=== PATIENT | female | born 1940 | race Caucasian/White ===

== ENCOUNTER 2017-09-06 06:26 | Day surgery (SDC) | payer MEDICARE ==
[~2017-09-06] VITALS: Ht 152.4 cm; Wt 61.6 kg
[~2017-09-06 06:26] MED LIST: LOVA1TAB47 PO; ONDA1TAB16 PO
[2017-09-06] MEDS ORDERED: IOHEXOL 350 MG/ML 50 ML BTL (for Cath Lab) OTHER ONE (06:27)
[2017-09-06] MEDS ORDERED: IOHEXOL 350 MG/ML 100 ML BTL (for Cath Lab) OTHER ONE (06:27)
[2017-09-06] MEDS ORDERED: SODIUM CHLOR 0.9% 1000 ML INJ 1,000 ML IV SCH (07:15)
[2017-09-06 07:43] VITALS: BP 149/63; PULSE 84; RESP 18; O2SAT 100
[2017-09-06] MEDS ORDERED: LEXA5TAB PO (07:51)
[2017-09-06] MEDS ORDERED: MULTTAB67 PO (07:51)
[2017-09-06] MEDS ORDERED: CLAR10CA3 PO (07:51)
[2017-09-06] MEDS ORDERED: ECASA81 PO (07:51)
[2017-09-06] MEDS ORDERED: BIOTCAP PO (07:51)
[2017-09-06] MEDS ORDERED: LOVA20TA PO (07:51)
[2017-09-06] MEDS ORDERED: ZOSTINJ SQ (07:51)
[2017-09-06] MEDS ORDERED: benadryl PO (07:51)
[2017-09-06] MEDS ORDERED: CALC600T10 PO (07:51)
[2017-09-06] MEDS ORDERED: HEPARIN-NS/PF INJ 1,000 ML ONE (09:01)
[2017-09-06] MEDS ORDERED: MIDAZOLAM HCL 2 MG/2 ML VIAL ONE (09:20)
[2017-09-06] MEDS ORDERED: HEPARIN SODIUM - IV 10,000 UNITS/10 ML VIAL ONE (09:26)
[2017-09-06] MEDS ORDERED: NITROGLYCERIN INJ 5 ML ONE (09:42)
[2017-09-06] MEDS ORDERED: ADENOSINE IV SOLN 3 MG/ML 2 ML VIAL ONE (09:42)
[2017-09-06] MEDS ORDERED: CLOPIDOGREL 300 MG TAB ONE (10:14)
--- NOTE | 2017-09-06 10:25 | CATHPROC ---
[employer] HIS Report Study Information Study Number Admission Scheduled Start Study Start [id number] Sep 06 2017 6:26AM 09/06/2017 Sep 06 2017 8:59AM [facility] Service Cath Endovascular Study Admit Source Facility Department [facility] - Fuel Conversion Technician Physician and Clinical Staff Initial Ilir Amezquita Mechanical Tech Elizabeth Alvarado BSN Recorder Bradly Rosado,RT(R) Scrub Yariel Biggs,RT(R) Procedures Performed Procedure Location (Site) Vessel Name Abdominal Angiogram Abd Aorta (A3) Aorta Angiogram (manual) Fem R. Com (R7) Femoral Art Angiogram (manual) Iliac L. Com. (L4) Illiac Art. Angiogram (manual) Popliteal L (L10) Popliteal Angiogram (manual) Popliteal R (R10) Popliteal Angiogram (manual) SFA (left) Femoral Art Angiogram (manual) SFA (right) Femoral Art Angiogram (manual) Tib, Ant. (left) Popliteal Angiogram (manual) Tib, Ant. (right) Popliteal Angiogram (manual) Tib, Post (right) Popliteal SPECIAL ORDER JEWELER Peroneal (left) Popliteal SPECIAL ORDER JEWELER SFA (left) Femoral Art Equipment Time Wastewater Supervisor Description Size Mfg Part Number Used/Scraped DBP- CARDIOVASCULAR CATHETER, STEALTH SOLID 09:47 [id number] Used SYSTEMS INC. 1.5MM 30 GRIT *[id number] CARDIOVASCULAR [id number] 09:39 WIRE, FIRM (VIPER) 335 Used SYSTEMS INC. *[id number] WIRE, GUIDE APPROACH HYDRO [id number] 09:40 COOK/NORA 300CM Used ST *[id number] 532-523 09:26 CORDIS/ NORA RIM SUPER TORQUE CATHETER FR 5 Used *[id number] BALLOON, ADMIRAL IN.PACT 5 X [id number] 10:03 [employer] 130CM Used 120 130CM *[id number] BALLOON, AMPHIRION DEEP 3 X [id number] 09:45 [employer] 152CM Used 40 152CM *[id number] BALLOON, PACIFIC PLUS 5 X 120 [id number] 09:57 [employer] 130CM Used 130CM *[id number] CATHETER, FR5 TRAILBLAZER [id number] 09:39 [employer] 135CM Used .035 *[id number] 09:05 MALLINCKRODT SYRINGE, ANGIOMAT 150ML 150ML [id number] Used [id number] 09:05 [employer] PACK, CCL CUSTOM * Used *[id number] 09:05 [employer] PACER PEN, SKIN DUAL W/ RULER * Used *[id number] 6865-23 09:26 [employer] PIGTAIL ANG. CATHETER FR 5 Used *[id number] 10:04 [employer] SHEATH, FR6.5 PRELUDE 11CM FR 6.5 038ACT Used *[id number] 09:05 [employer] WIRE, EXCHANGE 260CM 3MMJ 260CM Used *[id number] 09:05 NAMIC MANIFOLD, 4 PORT * Used *[id number] [id number] 09:05 NAMIC TUBING, HIGH PRESSURE 48" 48" Used *[id number] [id number] 09:26 NAMIC TUBING, HIGH PRESSURE 48" 48" Used *[id number] 09:05 [employer]COMED OMNIPAQUE, 300 MG, 150ML 150ML [id number] Used 09:28 [employer]COMED OMNIPAQUE, 300 MG, 50ML 50ML [id number] Used [id number] 09:05 [facility] BLANKET,WARM AIR CCL * Used *[id number] CAL196 09:05 TERUMO MEDICAL SHEATH, FR5 TERUMO (10CM) FR 5 Used *[id number] SHEATH, FR6 PINNACLE [id number] 09:35 TERUMO MEDICAL/NORA FR 6 Used DESTINATION 45CM *[id number] WIRE, ANGLE GLIDE STIFF .035 [id number] 09:05 TERUMO MEDICAL/NORA 260CM Used 260CM *[id number] Equipment Model, Serial, Lot Number and Expiration Data Description Model Number Serial Number Lot Number Expiration Jason e BALLOON, AMPHIRION DEEP 3 X 40 [id number] 11-30-2018 152CM CATHETER, FR5 TRAILBLAZER .035 [id number] 10-12-2019 CATHETER, STEALTH SOLID 1.5MM [id number] 04-01-2019 30 GRIT WIRE, FIRM (VIPER) 335 [id number] 04-01-2019 WIRE, GUIDE APPROACH HYDRO [id number] 06-11-2019 ST History: Current Medications Medication Dosage/Unit Route Frequency Last Date/Time Taken ASA Statins (any) History: Allergies Allergy Reaction Sulfa (Sulfonamide Antibiotics) Rash ciprofloxacin PT DOES NOT REMEMBER History: Risk Factors Family History of Hypertension Dyslipidemia Previous CA Previous Heart Failure Premature CAD No Yes Yes No No Prior Valve Prior PCI Prior CABG Surgery No No No Cerebrovascular Peripheral Artery Chronic Lung On Dialysis Diabetes Disease Disease Disease No No Yes No No History: Stress Tests Stress or Imaging Studies Performed No History: Other Current Smoker No Labs Hgb (g/dl) Hct (%) RBC (MIL/MM3) WBC (l/cumm) Platelets (thousands) 11.60-17.00 35.00-51.00 4.00-5.90 4.00-11.00 150.00-450.00 11.4 35.3 4.1 7.9 353 Glucose (mg/dl) BUN (mg/dl) Creatinine (mg/dl) BUN:Creatinine (1:x) 74.00-106.00 7.00-18.00 0.50-1.30 10.00-20.00 74 26 0.7 37.1 Na (meq/l) K (meq/l) Cl (meq/l) CO2 (mmol/L) Ca (mg/dl) 136.00-145.00 3.50-5.10 98.00-107.00 21.00-32.00 8.50-10.10 139 5 99 24 9.2 PT (sec) INR (PTT:PT) 9.80-11.60 0.90-1.10 10.2 1 CPK-MB (ng/ML) 0.50-3.60 Not Drawn Medication Medication Total Dose (Bolus/Oral) Medication Total Dosage/Unit 1% XYLOCAINE 20 mL FENTANYL 50 mcg HEPARIN 5000 units NTG (IC) 200 mcg PLAVIX 600 mg VERSED 2 mg Medications (Bolus/Oral) Medication Time Given Dosage/Unit Administered By Reason VERSED 09/06/2017 9:22:58 AM 1 mg Ilir Ludwig 1 mg VERSED given in lab by Ilir Ludwig in Right Antecubital via Peripheral IV. FENTANYL 09/06/2017 9:23:07 AM 25 mcg Elizabeth Alvarado 25 mcg FENTANYL given in lab by Elizabeth Alvarado BSN in Right Antecubital via Peripheral IV. 1% XYLOCAINE 09/06/2017 9:25:20 AM 20 mL Elizabeth Alvarado 20 mL 1% XYLOCAINE given in lab by Elizabeth Alvarado BSN in Right Groin via Subcutaneous. HEPARIN 09/06/2017 9:38:52 AM 5000 units Elizabeth Alvarado 5000 units HEPARIN given in lab by Elizabeth Alvarado BSN in Right Antecubital via Peripheral IV. VERSED 09/06/2017 9:43:38 AM 1 mg Ilir Ludwig 1 mg VERSED given in lab by Ilir Ludwig in Right Antecubital via Peripheral IV. FENTANYL 09/06/2017 9:44:32 AM 25 mcg Elizabeth Alvarado 25 mcg FENTANYL given in lab by Elizabeth Alvarado BSN in Right Antecubital via Peripheral IV. NTG (IC) 09/06/2017 10:08:20 AM 200 mcg Ilir Ludwig 200 mcg NTG (IC) given in lab by Ilir Ludwig via Intra-arterial. PLAVIX 09/06/2017 10:29:11 AM 600 mg Elizabeth Alvarado 600 mg PLAVIX given in lab by Elizabeth Alvarado BSN via Oral. Medication (Drip) Medication Time Given Dosage/Unit Concentration/Unit Diluent (ml) Solution IV Solutions 09/06/2017 8:59:55 AM 0 mL (IV) 500 NaCl .9 IV Solutions given in lab by Elizabeth Alvarado BSN in Right Antecubital via Peripheral IV. Pump/Dr ip Flow = 20 ml/hr using NaCl .9. Initial Case Assessment Cardiovascular HR Rhythm NIBP Chest Pain 79 Sinus 144/59 0 Edema Present Skin color Skin None Normal Warm Dry Neurological State Oriented to time-place- Alert Moves all extremities person Respiration - General Respiration Rate SpO2 (%) O2 (lpm) (B/min) 11 100 0 Final Case Assessment Cardiovascular HR Rhythm NIBP Chest Pain 83 Sinus 116/54 0 Edema Present Skin color Skin None Normal Warm Dry Circulatory - Right Pulses Dorsalis Pedis Femoral 1 1 Scale (0,1,2,3,4,d) Circulatory - Left Pulses Dorsalis Pedis Femoral 1 1 Scale (0,1,2,3,4,d) Neurological State Oriented to time-place- Alert Moves all extremities person Respiration - General Respiration Rate SpO2 (%) O2 (lpm) (B/min) 12 97 0 Chronological Log Time Study Chronological Log 8:57:31 Patient arrived via Bed. 8:59:36 Patient Name, D.O.B, / Armband Verified By R.N. 8:59:37 Consent signed by the physician and the patient and verified by the Fuel Conversion Technician staff. 8:59:37 Pre-op and post- op instructions given; patient acknowledges understanding of instructions. 8:59:39 Verbal Stimulation=2 Physical Stimulation=2 Airway=2 Respiration=2 TOTAL=8. (0=absent, 1=dejesus ited, 2=present) 8:59:40 Presedation assessment performed by Fuel Conversion Technician RN. 8:59:46 Patient has been NPO for More than 6Hrs. 8:59:49 Skin Breakdown- none per patient. 8:59:53 Patient Warmer Placed on the Table. 8:59:54 Aurelio Prominences Protected 8:59:55 A # 22 IV was noted in the Antecubital (right). Grade = 0 IV Solutions given in lab by Elizabeth Alvarado BSN in Right Antecubital via Peripheral IV. Pu mp/Drip Flow = 20 8:59:55 ml/hr using NaCl .9. 8:59:58 History and physical on the chart or being dictated. Assessment: Initial Case, HR=79 BPM, Rhythm=Sinus, CNXA=400/59 mmhg, Chest Pain=0, Edema=None, Color=Normal, Skin = Warm, Dry 8:59:59 Neurological: State=Alert, Ox3, SWAN Respiration: Resp=11 B/min, YsV1=263 %, O2=0 lpm Vitals capture started with the following parameters, Patient=Adult, Interval=5 min, Initial Pre emexn=842 mmHg, 9:04:26 Deflation Rate=5 mmHg, Cuff placed on Right Arm 9:05:12 HR=86 bpm, LRFW=434/59 mmhg, AkN9=522.0 %, Resp=17 B/min, Pain=0, Joann=10, Hand=2 9:09:23 Reference ECG taken 9:10:07 HR=84 bpm, ADVW=417/63 mmhg, XvE3=964.0 %, Resp=17 B/min, Pain=0, Joann=10, Hand=2 9:14:07 Bilateral groins prepped with 2% chlorhexidine, and draped after a 3 minute waiting time. 9:14:14 paged 9:15:06 HR=83 bpm, BFMW=902/56 mmhg, IjK6=566.0 %, Resp=19 B/min, Pain=0, Joann=10, Hand=2 9:17:32 Pressure channel 1 zeroed. 9:20:08 MD arrived. 9:20:11 HR=79 bpm, EPUJ=645/54 mmhg, SpO2=99.0 %, Resp=14 B/min, Pain=0, Joann=10, Hand=2 9:22:58 1 mg VERSED given in lab by Ilir Ludwig in Right Antecubital via Peripheral IV. Time Out. Correct patient, correct procedure, correct physician, power injector loaded with cont rast with surgical team 9:23:06 present. Time Out Concurred by MD and individual staff in procedure. 9:23:07 25 mcg FENTANYL given in lab by Elizabeth Alvarado BSN in Right Antecubital via Peripheral IV. 9:23:19 Case Start 9:25:08 HR=75 bpm, HHGL=802/56 mmhg, SpO2=99.0 %, Resp=12 B/min, Pain=0, Joann=10, Hand=2 9:25:20 20 mL 1% XYLOCAINE given in lab by Elizabeth Alvarado BSN in Right Groin via Subcutaneous. 9:26:52 Access site was Right Femoral Artery. 9:26:57 A SHEATH, FR5 TERUMO (10CM) FR 5 was advanced into the Fem Art (right) using the Percutaneou s technique. 9:27:30 A PIGTAIL ANG. CATHETER FR 5 was advanced over a wire. OMNIPAQUE, 300 MG, 50ML 50ML was used for injections. 9:30:11 HR=80 bpm, ABGP=995/51 mmhg, SpO2=97.0 %, Resp=11 B/min 9:30:11 Through a PIGTAIL ANG. CATHETER FR 5, The Abdominal Aorta was injected with 12 cc's of contr ast. After removing the current catheter a RIM SUPER TORQUE CATHETER FR 5 was advanced over a WIRE, A NGLE GLIDE 9:31:42 STIFF .035 260CM 260CM. 9:33:05 Iliac L. Com. (L4) angiogram, manually injected. 9:33:28 SFA (left) angiogram, manually injected. 9:33:50 SFA (left) angiogram, manually injected. 9:33:59 Popliteal L (L10) angiogram, manually injected. 9:34:22 Tib, Ant. (left) angiogram, manually injected. 9:35:08 HR=84 bpm, BKIF=702/51 mmhg, SpO2=98.0 %, Resp=14 B/min, Pain=0, Joann=10, Hand=2 A SHEATH, FR6 PINNACLE DESTINATION 45CM FR 6 was exchanged in the Fem Art (right). This was nec essary in 9:37:16 order to accomodate a larger catheter. 9:38:52 5000 units HEPARIN given in lab by Elizabeth Alvarado BSN in Right Antecubital via Periphe ral IV. 9:40:09 HR=85 bpm, KKBF=967/53 mmhg, SpO2=97.0 %, Resp=12 B/min, Pain=0, Joann=10, Hand=2 A CATHETER, FR5 TRAILBLAZER .035 135CM was advanced over a wire. OMNIPAQUE, 300 MG, 150ML 150ML was 9:40:26 used for injections. 9:43:32 The previous wire was exchanged for a WIRE, GUIDE APPROACH HYDRO ST 300CM. 9:43:38 1 mg VERSED given in lab by Ilir Ludwig in Right Antecubital via Peripheral IV. 9:43:50 The previous wire was exchanged for a WIRE, FIRM (VIPER) 335. 9:44:32 25 mcg FENTANYL given in lab by Elizabeth Alvarado BSN in Right Antecubital via Peripheral IV. 9:45:10 HR=89 bpm, NQPT=012/54 mmhg, SpO2=98.0 %, Resp=14 B/min, Pain=0, Hand=2 A BALLOON, AMPHIRION DEEP 3 X 40 152CM 152CM was inserted over WIRE, FIRM (VIPER) 335 via the F em Art 9:45:29 (right). 9:46:35 In the Peroneal (left) a BALLOON, AMPHIRION DEEP 3 X 40 152CM 152CM was inflated to 6 atms f or 45 seconds. 9:48:21 In the Peroneal (left) a BALLOON, AMPHIRION DEEP 3 X 40 152CM 152CM was inflated to 6 atms f or 45 seconds. 9:49:07 Balloon Removed. 9:50:11 HR=84 bpm, JLPZ=246/43 mmhg, SpO2=77.0 %, Resp=7 B/min, Pain=0, Joann=10, Hand=2 9:53:13 An CATHETER, STEALTH SOLID 1.5MM 30 GRIT catheter was inserted into the SFA (left). 9:53:45 Athrectomy in progress. 9:55:06 HR=88 bpm, GYZL=607/42 mmhg, SpO2=91.0 %, Resp=34 B/min, Pain=0, Joann=10, Hand=2 9:56:10 Catheter was removed 9:57:00 A BALLOON, PACIFIC PLUS 5 X 120 130CM 130CM was inserted over WIRE, FIRM (VIPER) 335 via the SFA (left). 9:57:02 In the SFA (left) a BALLOON, PACIFIC PLUS 5 X 120 130CM 130CM was inflated to 5 atms for 30 seconds. 9:58:17 In the SFA (left) a BALLOON, PACIFIC PLUS 5 X 120 130CM 130CM was inflated to 5 atms for 30 seconds. 9:59:04 Balloon Removed. 10:00:11 HR=77 bpm, ENJY=167/41 mmhg, SpO2=96.0 %, Resp=18 B/min, Pain=0, Joann=10, Hand=2 10:00:16 SFA (left) angiogram, manually injected. 10:02:05 A BALLOON, ADMIRAL IN.PACT 5 X 120 130CM 130CM was inserted over WIRE, FIRM (VIPER) 335 via the SFA (left). 10:03:02 In the SFA (left) a BALLOON, ADMIRAL IN.PACT 5 X 120 130CM 130CM was inflated to 5 atms for 180 seconds. 10:05:06 HR=82 bpm, ROGB=571/57 mmhg, SpO2=95.0 %, Resp=23 B/min, Pain=0, Joann=10, Hand=2 10:08:14 Balloon Removed. 10:08:20 200 mcg NTG (IC) given in lab by Ilir Ludwig via Intra-arterial. 10:09:12 Wire removed 10:09:47 Fem R. Com (R7) angiogram, manually injected. 10:09:54 SFA (right) angiogram, manually injected. 10:10:04 Popliteal R (R10) angiogram, manually injected. 10:10:11 HR=89 bpm, IOIV=596/54 mmhg, SpO2=94.0 %, Resp=18 B/min, Pain=0, Joann=10, Hand=2 10:10:17 Tib, Ant. (right) angiogram, manually injected. 10:10:24 Tib, Post (right) angiogram, manually injected. A SHEATH, FR6.5 PRELUDE 11CM FR 6.5 was exchanged in the Fem Art (right). This was necessary i n order to 10:11:11 accomodate a larger catheter. 10:12:17 Case End 10:12:59 Activated Clotting Time Drawn Assessment: Final Case, HR=83 BPM, Rhythm=Sinus, WWOK=417/54 mmhg, Chest Pain=0, Edema=None, Color=Normal, Skin = Warm, Dry Right Pulses: Tariq Ped=1, Femoral=1 10:13:20 Left Pulses: Tariq Ped=1, Femoral=1 Neurological: State=Alert, Ox3, SWAN Respiration: Resp=12 B/min, SpO2=97 %, O2=0 lpm 10:14:22 No case complications noted. 10:14:22 Cine recording checked. 10:15:08 HR=85 bpm, NIBP=98/46 mmhg, SpO2=92.0 %, Resp=9 B/min, Pain=0, Joann=10, Hand=2 10:15:19 Bedside Report will be given. 10:18:40 Sterile dressing applied to site 10:18:41 ACT (Normal Range 90-180) = 287 10:20:05 HR=82 bpm, VVHN=179/47 mmhg, SpO2=97.0 %, Resp=12 B/min, Pain=0, Joann=10, Hand=2 10:23:01 Patient moved to stretcher 10:25:03 Vitals capture stopped. 10:29:11 600 mg PLAVIX given in lab by Elizabeth Alvarado BSN via Oral. End Study - Contrast Media Used In Study Contrast Total Opened (mL) Total Used (mL) Total Wasted (mL) Omnipaque 200 130 70 End Study - Maximum Contrast Load Max Contrast Load (mL) 439.9 End Study - Radiation Exposure Fluoro Time (minutes) 7.2 End Study - Patient Disposition Complications Transferred To Interventional Outcome No Outpatient Bed successful
[2017-09-06] MEDS ORDERED: PLAV75TA29 PO (10:37)
[2017-09-06] MEDS ORDERED: SODIUM CHLOR 0.9% 250 ML INJ 250 ML IV PRN (10:45)
[2017-09-06] MEDS ORDERED: ATROPINE SULFATE 1 MG/ML VIAL IV PUSH PRN (10:45)
[2017-09-06] MEDS ORDERED: LIDOCAINE HCL 1% 50 ML VIAL INFIL PRN (10:45)
[2017-09-06] MEDS ORDERED: ACETAMINOPHEN 325 MG TAB PO PRN (10:45)
[2017-09-06] MEDS ORDERED: oxyCODONE/ACETAMINOPHEN 10 MG/325 MG TAB PO PRN (10:45)
[2017-09-06] MEDS ORDERED: ONDANSETRON HCL 4 MG/2 ML VIAL IV PUSH PRN (10:45)
[2017-09-06] MEDS ORDERED: LORazepam 2 MG/ML VIAL IV PUSH PRN (10:45)
[2017-09-06] MEDS ORDERED: MORPHINE SULFATE 2 MG/ML INJ IV PUSH PRN (10:45)
[2017-09-06] MEDS ORDERED: MISC INFORMATION XX ONE (10:45)
[2017-09-06] MEDS ORDERED: BACITRACIN OINT 0.9 GM PKT TOP ONE (10:45)
[2017-09-06] MEDS ORDERED: oxyCODONE/ACETAMINOPHEN 5 MG/325 MG TAB PO PRN (10:45)
[2017-09-06] MEDS ORDERED: METOCLOPRAMIDE HCL 10 MG/2 ML VIAL IV PUSH PRN (10:45)
--- NOTE | 2017-09-06 11:01 | MA ---
cc: VIVIANE ROSSHEN DATE 09/06/2017 Peripheral angiography with intervention. PROCEDURE PERFORMED 1. Fluoroscopy with interpretation 2. Descending aortography 3. Bilateral lower extremity peripheral angiography with first, second, third order visualization interpretation. 4. Orbital rotational atherectomy and balloon angioplasty with drug coated balloon of the left superficial femoral artery. 5. Percutaneous transluminal angioplasty posterior tibial artery. METHOD The risks, benefits and alternatives discussed with the patient, the patient understood and consented to the procedure. PROCEDURE The patient brought into the catheterization lab, placed on the catheterization table. The right groin prepped and draped in the usual sterile fashion. The right groin was anesthetized with 2% lidocaine. The right radial artery was cannulated and a 5-Divehi 11 cm sheath was placed without difficulty. DESCENDING AORTOGRAPHY Descending aortography was performed through anterior-posterior view using a 24 cc contrast injection with good opacification. Descending aortography revealed mild infrarenal descending aortic atherosclerosis. The bilateral renal arteries are widely patent. PERIPHERAL ANGIOGRAPHY 1. Left common internal and external iliac arteries ARE widely patent. The left common femoral and profunda arteries are widely patent. The left superficial femoral artery has a 75% stenosis in the proximal segment. The distal segment has minor luminal irregularities. There is two-vessel runoff below the knee. The peroneal artery is occluded. The posterior tibial has an 80% tubular stenosis in the proximal segment. The remainder of the vessels have minor luminal irregularities. 2. Right lower extremity. Right internal and external common iliac arteries have minor luminal irregularities. Right common femoral and profunda arteries have minor luminal irregularities. Right superficial femoral artery has a 75% stenosis proximally and a 95% stenosis in the mid segment. The popliteal artery has minor luminal irregularities. There is single-vessel runoff below the knee. The right lower extremity anterior tibial have minor luminal irregularities. Posterior tibial vessels are occluded. The posterior tibial is collateralized distally. PERCUTANEOUS INTERVENTION A 6 Divehi, 45 cm Gudeng [employer] [place] sheath was advanced up-and-over the arch in the left common femoral artery. A 0.035 inches 260 cm stiff angle Glidewire was navigated behind the Trailblazer catheter into the distal left popliteal artery. Heparin was administered throughout the entire procedure to maintain appropriate coagulation. 0.[address] x [address] wire was then navigated down the distal posterior tibial vessel. The Trailblazer catheter advanced behind it. [place] ST wire was removed. A 0.014 x 335 cm Viper wire was navigated down the distal posterior tibial vessel. The [place]-ST wire was navigated down the posterior tibial artery. Trailblazer catheter advanced down the 0.014, 335 cm Viper wire was navigated down the distal posterior tibial vessel and the trailblazer catheter removed. A 3.0 x 40 mm Medtronic balloon was deployed in the posterior tibial artery. Repeat angiography showed no significant residual stenosis. A 1.5 mm CSI atherectomy catheter was then advanced down to the left superficial femoral artery and two sequential passes of 60,000 and 90,000 revolutions per minute were performed in the proximal to mid left superficial femoral artery. Repeat angiography showed still severe residual stenosis. A 5.0 mm x 120 mm Medtronic balloon was then deployed followed by a 5.0 x 120 mm drug coated balloon for prolonged inflation. Repeat angiography showed no residual stenosis. The sheath was then removed with a 6-Divehi short sheath was sewn into place to be removed with manual hemostasis. CONCLUSIONS 1. Severe bilateral superficial femoral artery stenosis. 2. Severe bilateral infrapopliteal disease. 3. Mild infrarenal descending aortic atherosclerosis. 4. Successful orbital rotational atherectomy, balloon angioplasty left superficial with a drug coated balloon. 5. Successful balloon angioplasty left posterior tibial artery. PLAN We will initiate Plavix therapy. Monitor the patient closely for any post procedural complications. We will anticipate discharge today. We will likely then schedule a staged intervention of the right superficial femoral artery. MD GARRISON Cardenas/KYRIE /10:20 AM /10:30 AM
[2017-09-07] MEDS ORDERED: BENA25TA6 PO (10:52)
== END 2017-09-06 18:45 | disposition home or self-care (01) ==
LOC: HDOC 06:26 → HDIC 06:29 → HDOC 18:45
PROVIDERS: ATTEND Internal Medicine
DX: I70.202 Unspecified atherosclerosis of native arteries of extremities, left leg (principal); I70.0 Atherosclerosis of aorta; I10 Essential (primary) hypertension; E78.00 Pure hypercholesterolemia, unspecified
CPT/HCPCS: 37225; 37228; 75625; 75716; 85002; 85347; 86850; 86900; 86901; 99152; 99153; C1714; C1725; C1751; C1769; C1893; C2623; J1644; J2250; J3010; J0153; Q9967

== ENCOUNTER 2017-09-07 12:24 | Emergency (ER) | payer MEDICARE ==
[~2017-09-07] VITALS: Ht 154.9 cm; Wt 62.9 kg
[~2017-09-07 12:24] MED LIST changes: +BENA25TA6 PO; +BIOTCAP PO; +CALC600T10 PO; +CLAR10CA3 PO; +ECASA81 PO; +LEXA5TAB PO; -LOVA1TAB47 PO; +LOVA20TA PO; +MULTTAB67 PO; -ONDA1TAB16 PO; +PLAV75TA29 PO; +ZOSTINJ SQ; +benadryl PO
[2017-09-07 12:43] VITALS: BP 137/60; PULSE 92; RESP 16; TEMP 98.5; O2SAT 100
--- NOTE | 2017-09-07 14:14 | PD ---
HPI Chief Complaint: Lump, Cyst, Hernia Time Seen by Provider: 14:08 Travel History International Travel<30 days: No Contact w/Intl Traveler<30days: No Traveled to known affect area: No History of Present Illness HPI Patient presents with concerns of right inguinal ecchymosis and hematoma after an aortogram with runoff yesterday with Dr. Ludwig. Access obtained in the right inguinal region. Denies any chest pain shortness of breath urinary or bowel symptoms. Denies any nausea vomiting diarrhea or fever. States that Dr. Ludwig did inform her that there was a hematoma and to expect some bruising. PFSH Past Medical History Hx Anticoagulant Therapy: Yes (81ms asa , plavix) Arthritis: Yes Asthma: No Autoimmune Disease: No Blood Disorders: No Depression: Yes Heart Rhythm Problems: Yes Cancer: No Cardiac Catheterization: Yes Cardiovascular Problems: Yes High Cholesterol: Yes Chest Pain: No Congestive Heart Failure: No COPD: No Cerebrovascular Accident: No Diabetes: No Diminished Hearing: No Endocrine: No Gastrointestinal Disorders: No GERD: No Glaucoma: No Genitourinary: No Headaches: No Hepatitis: No Hiatal Hernia: No Hypertension: Yes Kidney Stones: No Musculoskeletal: Yes Neurologic: No Psychiatric: Yes Reproductive: No Respiratory: Yes Myocardial Infarction: No Renal Failure: No Seizures: No Sleep Apnea: No Thyroid Disease: No Ulcer: No ?: Not Menopausal: Yes Past Surgical History Abdominal Surgery: Yes AICD: No Appendectomy: Yes Cardiac Surgery: No Ear Surgery: No Endocrine Surgery: No Eye Surgery: No Genitourinary Surgery: Yes Gynecologic Surgery: Yes (C SECTIONS) Insulin Pump: No Neurologic Surgery: No Oral Surgery: No Pacemaker: No Thoracic Surgery: No Other Surgery: Yes Social History Alcohol Use: No Tobacco Use: No Substance Use: No Allergies-Medications (Allergen,Severity, Reaction): Coded Allergies: Sulfa (Sulfonamide Antibiotics) (Unverified Allergy, Severe, Rash, 09/07/17) ciprofloxacin (Unverified Allergy, Unknown, PT DOES NOT REMEMBER, 09/07/17) Reported Meds & Prescriptions Reported Meds & Active Scripts Active Plavix (Clopidogrel Bisulfate) 75 Mg Tab 75 Mg PO DAILY Reported Benadryl Allergy (Diphenhydramine HCl) 25 Mg Tablet 25 Mg PO HS Multiple Vitamin 1 Tab 1 Tab PO DAILY Lovastatin 20 Mg Tab 20 Mg PO DAILY Lexapro (Escitalopram Oxalate) 5 Mg Tab 5 Mg PO DAILY Claritin (Loratadine) 10 Mg Cap 10 Mg PO DAILY Calcium + D3 (Calcium Carbonate-Cholecalciferol) 600-200 Mg-Unit Tab 1 Tab PO BID Biotin 5 Mg Cap [address] (Aspirin) 81 Mg Tabdr 81 Mg PO DAILY Review of Systems General / Constitutional: No: Fever Eyes: No: Visual changes HENT: No: Headaches Cardiovascular: No: Chest Pain or Discomfort Respiratory: No: Shortness of Breath Gastrointestinal: No: Abdominal Pain Genitourinary: No: Dysuria Musculoskeletal: No: Pain Skin: No Rash Neurologic: No: Weakness Psychiatric: No: Depression Endocrine: No: Polydipsia Hematologic/Lymphatic: No: Easy Bruising Physical Exam Narrative GENERAL: Well-nourished, well-developed patient. SKIN: Focused skin assessment warm/dry. HEAD: Normocephalic. EYES: No scleral icterus. No injection or drainage. NECK: Supple, trachea midline. No JVD or lymphadenopathy. CARDIOVASCULAR: Regular rate and rhythm without murmurs, gallops, or rubs. RESPIRATORY: Breath sounds equal bilaterally. No accessory muscle use. GASTROINTESTINAL: Abdomen soft, non-tender, nondistended. MUSCULOSKELETAL: No cyanosis, or edema. BACK: Nontender without obvious deformity. No CVA tenderness. Evaluation of the right inguinal region reveals a clean and dry dressing without excessive bleeding. Femoral pulses palpated bilaterally, dorsal pedis pulses palpated bilaterally, mild ecchymosis extending into the groin as well as a moderate palpable hematoma measuring approximately 4 x 5 cm. Good color and capillary refill of the bilateral lower extremities without edema Data Data Last Documented VS Vital Signs Date Time Temp Pulse Resp B/P (MAP) Pulse Ox O2 Delivery O2 Flow Rate FiO2 09/07/17 12:43 98.5 92 16 137/60 (85) 100 MDM Medical Decision Making Medical Screen Exam Complete: Yes Emergency Medical Condition: Yes Differential Diagnosis Uncontrolled bleeding, right inguinal hematoma, surgical complication Narrative Course Assessment and plan discussed with patient and at bedside. Diagnosis Primary Impression: Hematoma Patient Instructions: General Instructions Additional Instructions: Encouraged to take it easy without any aggressive activity. Encouraged follow- up with PCP/vascular. Encouraged to return to emergency room with any onset of new symptoms. Med/Other Pt SpecificInfo: No Meds Exist/No RX given Disposition: 01 DISCHARGE HOME Condition: Good Alhaji Wilburn MD Sep 07, 2017 14:14
== END 2017-09-07 14:35 | disposition home or self-care (01) ==
LOC: PHED 12:24
DX: L76.32 Postprocedural hematoma of skin and subcutaneous tissue following other procedure (principal)
CPT/HCPCS: 99281

== ENCOUNTER 2017-10-02 23:18 | Emergency (ER) | payer MEDICARE ==
[~2017-10-02] VITALS: Ht 152.4 cm; Wt 60.0 kg
[~2017-10-02 23:18] MED LIST changes: -ZOSTINJ SQ; -benadryl PO
[2017-10-02 23:36] VITALS: BP 162/67; PULSE 73; RESP 16; TEMP 98.6; O2SAT 100
--- NOTE | 2017-10-02 23:59 | PD ---
HPI Chief Complaint: Fall Time Seen by Provider: 23:51 Travel History International Travel<30 days: No Contact w/Intl Traveler<30days: No Traveled to known affect area: No History of Present Illness HPI 77-year-old female presents to the emergency department by EMS transport from home for evaluation of right upper arm pain facial contusion and right hip pain status post non-syncopal trip and fall just prior to arrival to the emergency department. Patient states she was trying to squeeze between 2 beats is a furniture lost her balance and fell forward. Patient landed on her right side hitting the right side of her face which presents with bruising to the forehead and right periorbital region with a small laceration over the right eyebrow as well as complaint of pain and pain with attempted movement of her right upper extremity in the humerus distribution as well as right hip pain. Patient has history of PAD, hypertension, dyslipidemia, bilateral hip replacement, and recent procedural intervention for peripheral vascular disease of the left lower extremity with residual bruising to the right proximal leg. Patient denies any loss of consciousness denies headache visual disturbance neck pain back pain chest pain palpitations rib pain shortness of breath abdominal pain or altered mentation. Patient does take Plavix. Patient rates pain 3/10 intensity. Patient's tetanus status is current as of June 2017. Patient's had no nausea vomiting. PFSH Past Medical History Narrative Medical Plavix therapy dyslipidemia hypertension PAD appendectomy L hip surgery that same; no tobacco use; nursing notes reviewed Hx Anticoagulant Therapy: Yes (81ms asa , plavix) Arthritis: Yes Asthma: No Autoimmune Disease: No Blood Disorders: No Depression: Yes Heart Rhythm Problems: Yes Cancer: No Cardiac Catheterization: Yes Cardiovascular Problems: Yes High Cholesterol: Yes Chest Pain: No Congestive Heart Failure: No COPD: No Cerebrovascular Accident: No Diabetes: No Diminished Hearing: No Endocrine: No Gastrointestinal Disorders: No GERD: No Glaucoma: No Genitourinary: No Headaches: No Hepatitis: No Hiatal Hernia: No Hypertension: Yes Kidney Stones: No Musculoskeletal: Yes Neurologic: No Psychiatric: Yes Reproductive: No Respiratory: Yes Myocardial Infarction: No Renal Failure: No Seizures: No Sleep Apnea: No Thyroid Disease: No Ulcer: No Influenza Vaccination: No Menopausal: Yes : 3 Para: 3 Past Surgical History Abdominal Surgery: Yes AICD: No Appendectomy: Yes Cardiac Surgery: No Section: Yes (x3) Ear Surgery: No Endocrine Surgery: No Eye Surgery: No Genitourinary Surgery: Yes Gynecologic Surgery: Yes (C SECTIONS) Insulin Pump: No Neurologic Surgery: No Oral Surgery: No Pacemaker: No Thoracic Surgery: No Other Surgery: Yes Social History Alcohol Use: No Tobacco Use: No Substance Use: No Allergies-Medications (Allergen,Severity, Reaction): Coded Allergies: Sulfa (Sulfonamide Antibiotics) (Unverified Allergy, Severe, Rash, 10/02/17 ) ciprofloxacin (Unverified Allergy, Unknown, PT DOES NOT REMEMBER, 10/02/17) Reported Meds & Prescriptions Reported Meds & Active Scripts Active Plavix (Clopidogrel Bisulfate) 75 Mg Tab 75 Mg PO DAILY Reported Benadryl Allergy (Diphenhydramine HCl) 25 Mg Tablet 25 Mg PO HS Multiple Vitamin 1 Tab 1 Tab PO DAILY Lovastatin 20 Mg Tab 20 Mg PO DAILY Lexapro (Escitalopram Oxalate) 5 Mg Tab 5 Mg PO DAILY Claritin (Loratadine) 10 Mg Cap 10 Mg PO DAILY Calcium + D3 (Calcium Carbonate-Cholecalciferol) 600-200 Mg-Unit Tab 1 Tab PO BID Biotin 5 Mg Cap [address] (Aspirin) 81 Mg Tabdr 81 Mg PO DAILY Review of Systems Except as stated in HPI: all other systems reviewed are Neg Physical Exam Narrative GENERAL: Well-developed well-nourished female in no acute distress no respiratory distress; GCS 15 SKIN: Warm and dry. HEAD: Atraumatic. Normocephalic. Scalp without soft tissue swelling or tenderness or bony abnormality no abrasion or laceration. EYES: Pupils equal and round. No scleral icterus. No injection or drainage. Extraocular muscles intact. Mild periorbital ecchymosis to the right forehead and left periorbital soft tissue without bony step-off; 2 cm superficial laceration to the right eyebrow; left periorbital soft tissue and bony palpation without abnormality. ENT: No nasal bleeding or discharge. Mucous membranes pink and moist. Airway is patent. No mandible tenderness and no malocclusion. NECK: Trachea midline. No JVD. No midline tenderness to direct palpation along the cervical spine no bony step-off. CARDIOVASCULAR: Regular rate and rhythm. RESPIRATORY: No accessory muscle use. Clear to auscultation. Breath sounds equal bilaterally. GASTROINTESTINAL: Abdomen soft, non-tender, nondistended. Hepatic and splenic margins not palpable. MUSCULOSKELETAL: Extremities without clubbing, cyanosis, or edema. No obvious deformities. Pelvis stable. Tenderness to palpation along the right upper arm without bony deformity distally extremity is neurovascular tendon intact left upper extremity and bilateral lower extremities demonstrate full range of motion distally neurovascular tendon intact; radial pulses are 2+ to palpation bilateral dorsalis pedis pulses are 2+ to palpation bilaterally. NEUROLOGICAL: Awake and alert. GCS 15. No obvious cranial nerve deficits. Motor grossly within normal limits. Five out of 5 muscle strength in the arms and legs. Normal speech. PSYCHIATRIC: Appropriate mood and affect; insight and judgment normal. Data Data Last Documented VS Vital Signs Date Time Temp Pulse Resp B/P (MAP) Pulse Ox O2 Delivery O2 Flow Rate FiO2 10/02/17 23:36 98.6 73 16 162/67 (98) 100 Room Air Orders Orders Electrocardiogram (10/02/17 23:51) Complete Blood Count With Diff (10/02/17 23:51) Comprehensive Metabolic Panel (10/02/17 23:51) Prothrombin Time / Inr (Pt) (10/02/17 23:51) Act Partial Throm Time (Ptt) (10/02/17 23:51) Type And Screen (10/02/17 23:51) Chest, Single Ap (10/02/17 23:51) Pelvis, Ap Only (Routine) (10/02/17 23:51) Iv Access Insert/Monitor (10/02/17 23:51) Oximetry (10/02/17 23:51) Ecg Monitoring (10/02/17 23:51) Sodium Chloride 0.9% Flush (Ns Flush) (10/03/17 00:00) Humerus (Min 2vws) (10/02/17 ) Ct Brain W/O Iv Contrast(Rout) (10/02/17 ) Ct Facial Bones W/O Iv Cont (10/02/17 ) Ondansetron Inj (Zofran Inj) (10/03/17 01:00) Morphine Inj (Morphine Inj) (10/03/17 01:00) Splint Or Brace Apply/Monitor (10/03/17 01:34) Oxycodone-Acetamin 5-325 Mg (Percocet (10/03/17 02:30) Fiberglass Sugartong Sp Ad Arm (10/03/17 ) Sling And Swathe (10/03/17 ) Humerus (Min 2vws) (10/03/17 ) Ed Discharge Order (10/03/17 03:14) Labs Laboratory Tests Test 10/03/17 00:45 White Blood Count 11.6 TH/MM3 Red Blood Count 4.07 MIL/MM3 Hemoglobin 11.3 GM/DL Hematocrit 34.3 % Mean Corpuscular Volume 84.2 FL Mean Corpuscular Hemoglobin 27.7 PG Mean Corpuscular Hemoglobin Concent 32.9 % Red Cell Distribution Width 15.2 % Platelet Count 329 TH/MM3 Mean Platelet Volume 7.8 FL Neutrophils (%) (Auto) 82.6 % Lymphocytes (%) (Auto) 11.8 % Monocytes (%) (Auto) 4.3 % Eosinophils (%) (Auto) 0.7 % Basophils (%) (Auto) 0.6 % Neutrophils # (Auto) 9.6 TH/MM3 Lymphocytes # (Auto) 1.4 TH/MM3 Monocytes # (Auto) 0.5 TH/MM3 Eosinophils # (Auto) 0.1 TH/MM3 Basophils # (Auto) 0.1 TH/MM3 CBC Comment DIFF FINAL Differential Comment Prothrombin Time 10.4 SEC Prothromb Time International Ratio 1.0 RATIO Activated Partial Thromboplast Time 24.7 SEC Blood Urea Nitrogen 26 MG/DL Creatinine 0.90 MG/DL Random Glucose 119 MG/DL Total Protein 7.5 GM/DL Albumin 3.4 GM/DL Calcium Level 9.3 MG/DL Alkaline Phosphatase 116 U/L Aspartate Amino Transf (AST/SGOT) 25 U/L Alanine Aminotransferase (ALT/SGPT) 24 U/L Total Bilirubin 0.2 MG/DL Sodium Level 136 MEQ/L Potassium Level 3.9 MEQ/L Chloride Level 103 MEQ/L Carbon Dioxide Level 23.8 MEQ/L Anion Gap 9 MEQ/L Estimat Glomerular Filtration Rate 61 ML/MIN [facility] Medical Decision Making Medical Screen Exam Complete: Yes Emergency Medical Condition: Yes Medical Record Reviewed: Yes Interpretation(s) CBC & BMP Diagram 10/03/17 00:45 Total Protein 7.5, Albumin 3.4, Calcium Level 9.3, Alkaline Phosphatase 116, Aspartate Amino Transf (AST/SGOT) 25, Alanine Aminotransferase (ALT/SGPT) 24, Total Bilirubin 0.2 Vital Signs Date Time Temp Pulse Resp B/P (MAP) Pulse Ox O2 Delivery O2 Flow Rate FiO2 10/02/17 23:36 98.6 73 16 162/67 (98) 100 Room Air Last Impressions Pelvis X-Ray 10/02/172350 Signed Impressions: Service Date/Time: October 00:06 - CONCLUSION: 1. Previous hip replacement. No acute findings. Clinton Isabel MD Chest X-Ray 10/02/172350 Signed Impressions: Service Date/Time: October 00:10 - CONCLUSION: 2.5 cm nodule in right midlung with central calcification most characteristic of hamartoma. Lungs otherwise clear. No change from 2013. No further workup recommended. Clinton Isabel MD Maxillofacial CT 10/02/17 0000 Signed Impressions: Service Date/Time: October 00:23 - CONCLUSION: 1. No acute fracture. Soft tissue swelling in the right frontal and periorbital region. Clinton Isabel MD Humerus X-Ray 10/02/17 0000 Signed Impressions: Service Date/Time: October 00:08 - CONCLUSION: 1. Fracture of proximal right humeral shaft with mild angulation. Clinton Isabel MD Head CT 10/02/17 0000 Signed Impressions: Service Date/Time: October 00:23 - CONCLUSION: 1. No acute intracranial abnormalities. Mild soft tissue swelling in the right frontal region and right perihilar region. Clinton Isabel MD Differential Diagnosis Fall, humerus fracture, hip fracture, facial fracture, facial contusion, laceration, minor closed injury, ICH Narrative Course Specimens collected and sent for resulting patient administered morphine sulfate 2 mg IV times one dose Imaging studies CT brain noncontrast reveals no acute intracranial process or bony abnormalities CT facial bones revealed no obvious bony abnormality or facial fracture soft tissue swelling is noted Patient and family informed of imaging results including fracture of the proximal humerus; patient's case discussed with on-call orthopedist recommends if tolerated coaptation splint otherwise sling with follow-up on Saturday Patient tolerating splint well and given a one-time dose of oral Percocet will be given prescription for Percocet to take as needed encouraged to follow-up with orthopedist Physician Communication Physician Communication discussed with Dr Ruff Diagnosis Primary Impression: Closed right humeral fracture Qualified Codes: S42.291A - Other displaced fracture of upper end of right humerus, initial encounter for closed fracture Additional Impression: Minor closed head injury Referrals: Orthopaedic Surgeon call for appointment Call office in a.m. to schedule follow-up appointment with your orthopedist Dr. Hunter or bottom ironer orthopedist Dr. Ruff on Saturday Patient Instructions: Narcotic given in the ED Additional Instructions: Increase fluid hydration Take pain medication as prescribed as needed; be aware that narcotic medications may impair judgment, delay reaction time, increase risk for fall or cause constipation Takes Zofran as prescribed as needed needed for nausea and/or vomiting otherwise do not take this medication Use ice intermittently to areas of soft tissue swelling Follow head injury precautions 24 hours Follow up with your primary care provider call office in a.m. to schedule follow -up appointment Return to the emergency department for any concerns or change in condition Med/Other Pt SpecificInfo: Prescription(s) given Scripts Ondansetron Odt (Zofran Odt) 4 Mg Tab 4 MG SL Q6HR Y for Nausea/Vomiting, #10 TAB 0 Refills Prov: Tish Theodore MD 10/03/17 Oxycodone-Acetaminophen (Percocet) 5-325 mg Tab 1 TAB PO Q6H Y for PAIN, #12 TAB 0 Refills Prov: Tish Theodore MD 10/03/17 Disposition: 01 DISCHARGE HOME Condition: Stable Tish Theodore MD Oct 02, 2017 23:59
[2017-10-03] MEDS ORDERED: SODIUM CHLORIDE 0.9% FLUSH 10 ML FLUSH IVF PRN
--- NOTE | 2017-10-03 00:54 | RADRPT ---
EXAM DATE/TIME: 10/03/2017 00:23 [facility] COMPARISON: No previous studies available for comparison. INDICATIONS : Trauma, fall, hematoma to right forehead. RADIATION DOSE: 36.39 CTDIvol (mGy) MEDICAL HISTORY : Hypertension. SURGICAL HISTORY : None. ENCOUNTER: Initial ACUITY: 1 day PAIN SCALE: 3/10 LOCATION: cranial TECHNIQUE: Multiple contiguous axial images were obtained of the head. Using automated exposure control and adj ustment of the mA and/or kV according to patient size, radiation dose was kept as low as reasonably a chievable to obtain optimal diagnostic quality images. DICOM format image data is available electro nically for review and comparison. FINDINGS: CEREBRUM: The ventricles are normal for age. No evidence of midline shift, mass lesion, hemorrhage or acute in farction. No extra-axial fluid collections are seen. POSTERIOR FOSSA: The cerebellum and brainstem are intact. The 4th ventricle is midline. The cerebellopontine angle i s unremarkable. EXTRACRANIAL: The visualized portion of the orbits is intact. SKULL: The calvaria is intact. No evidence of skull fracture. CONCLUSION: 1. No acute intracranial abnormalities. Mild soft tissue swelling in the right frontal region and rig ht perihilar region. Clinton Isabel MD on October 03, 2017 at 0:48 Board Certified Radiologist. This report was verified electronically.
[2017-10-03 00:55] LABS: AUTOMATED NEUTROPHIL # 9.6 TH/MM3 (1.8-7.7); BASOPHIL # 0.1 TH/MM3 (0-0.2); BASOPHIL % 0.6 % (0.0-2.0); EOSINOPHIL # 0.1 TH/MM3 (0-0.4); EOSINOPHIL % 0.7 % (0.0-4.0); HEMATOCRIT 34.3 % (35.0-46.0); HEMOGLOBIN 11.3 GM/DL (11.6-15.3); LYMPH % 11.8 % (9.0-44.0); LYMPHOCYTE # 1.4 TH/MM3 (1.0-4.8); MEAN CELL VOLUME 84.2 FL (80.0-100.0); MEAN CORPUSCULAR HEMOGLOBIN 27.7 PG (27.0-34.0); MEAN CORPUSCULAR HGB CONC 32.9 % (32.0-36.0); MEAN PLATELET VOLUME 7.8 FL (7.0-11.0); MONO % 4.3 % (0.0-8.0); MONOCYTE # 0.5 TH/MM3 (0-0.9); NEUT % 82.6 % (16.0-70.0); PLATELET COUNT 329 TH/MM3 (150-450); RED BLOOD COUNT 4.07 MIL/MM3 (4.00-5.30); RED CELL DISTRIBUTION WIDTH 15.2 % (11.6-17.2); WHITE BLOOD COUNT 11.6 TH/MM3 (4.0-11.0)
--- NOTE | 2017-10-03 00:56 | RADRPT ---
EXAM DATE/TIME: 10/03/2017 00:10 [facility] COMPARISON: No previous studies available for comparison. INDICATIONS : Pain post fall. MEDICAL HISTORY : Right lung mass. SURGICAL HISTORY : None. ENCOUNTER: Initial ACUITY: 1 day PAIN SCORE: 09/11 LOCATION: Bilateral chest FINDINGS: A single view of the chest demonstrates the lungs to be symmetrically aerated without evidence of mas s, infiltrate or effusion. There is a 2.5 cm nodule in the right midlung with central calcification m ost characteristic of a hamartoma. The cardiomediastinal contours are unremarkable. Osseous structur es are intact. CONCLUSION: 2.5 cm nodule in right midlung with central calcification most characteristic of hamartoma. Lungs oth erwise clear. No change from 2014. No further workup recommended. Clinton Isabel MD on October 03, 2017 at 0:52 Board Certified Radiologist. This report was verified electronically.
[2017-10-03] MEDS ORDERED: ONDANSETRON HCL 4 MG/2 ML VIAL IV PUSH ONE (01:00)
[2017-10-03] MEDS ORDERED: MORPHINE SULFATE 2 MG/ML INJ IV PUSH ONE (01:00)
--- NOTE | 2017-10-03 01:00 | RADRPT ---
EXAM DATE/TIME: 10/03/2017 00:06 [facility] COMPARISON: No previous studies available for comparison. INDICATIONS : Pelvis pain post fall. MEDICAL HISTORY : None. SURGICAL HISTORY : Bilateral hip replacements. ENCOUNTER: Initial ACUITY: 1 day PAIN SCORE: 4/10 LOCATION: pelvis. FINDINGS: There is previous bilateral total hip replacement. Bones are osteopenic. No acute fracture or disloca tion. CONCLUSION: 1. Previous hip replacement. No acute findings. Clinton Isabel MD on October 03, 2017 at 0:56 Board Certified Radiologist. This report was verified electronically.
--- NOTE | 2017-10-03 01:00 | RADRPT ---
EXAM DATE/TIME: 10/03/2017 00:08 [facility] COMPARISON: No previous studies available for comparison. INDICATIONS : Right humerus pain post fall. MEDICAL HISTORY : None. SURGICAL HISTORY : None. ENCOUNTER: Initial ACUITY: 1 day PAIN SCORE: 10/10 LOCATION: Right humerus. FINDINGS: Two view examination of the right humerus demonstrates spiral fracture proximal humeral shaft with mi ld angulation. No dislocation. CONCLUSION: 1. Fracture of proximal right humeral shaft with mild angulation. Clinton Isabel MD on October 03, 2017 at 0:57 Board Certified Radiologist. This report was verified electronically.
--- NOTE | 2017-10-03 01:06 | RADRPT ---
EXAM DATE/TIME: 10/03/2017 00:23 [facility] COMPARISON: No previous studies available for comparison. INDICATIONS : Trauma, fall. Hematoma to right forehead. RADIATION DOSE: 50.67 CTDIvol (mGy) MEDICAL HISTORY : Hypertension. SURGICAL HISTORY : None. ENCOUNTER: Initial ACUITY: 1 day PAIN SCORE: 3/10 LOCATION: facial TECHNIQUE: Volumetric scanning of the facial bones was performed. Using automated exposure control and adjustme nt of the mA and/or kV according to patient size, radiation dose was kept as low as reasonably achiev able to obtain optimal diagnostic quality images. DICOM format image data is available [facility] for review and comparison. FINDINGS: ORBITS: The orbital and infraorbital osseous structures are intact. The retroconal structures have a normal configuration. No radiopaque foreign bodies are seen. NASAL BONE: The nasal bone and maxillary spine are intact ZYGOMATIC ARCHES: Symmetric without evidence of fracture. SINUSES: The maxillary, ethmoid and frontal sinuses are intact. No air-fluid levels seen. NASAL CAVITY: The nasal septum is intact and midline. The lacrimal ducts are intact. SOFT TISSUES: No radiopaque foreign bodies seen. Soft tissue swelling in the right frontal and protrusion. INTRACRANIAL: No intracranial air seen. CRIBIFORM PLATE: Grossly intact. CONCLUSION: 1. No acute fracture. Soft tissue swelling in the right frontal and periorbital region. Clinton Isabel MD on October 03, 2017 at 1:01 Board Certified Radiologist. This report was verified electronically.
[2017-10-03 01:07] LABS: PROTHROMBIN TIME - PATIENT 10.4 SEC (9.8-11.6)
[2017-10-03 01:20] LABS: ALBUMIN 3.4 GM/DL (3.4-5.0); ALT (GPT) 24 U/L (10-53); AST (GOT) 25 U/L (15-37); BICARBONATE 23.8 MEQ/L (21.0-32.0); BLOOD UREA NITROGEN 26 MG/DL (7-18); CALCIUM 9.3 MG/DL (8.5-10.1); CHLORIDE 103 MEQ/L (98-107); GLOMERULAR FILTRATION RATE 61 ML/MIN (>89); GLUCOSE,RANDOM 119 MG/DL (74-106); SODIUM (NA) 136 MEQ/L (136-145)
[2017-10-03 01:23] LABS: ALKALINE PHOSPHATASE 116 U/L (45-117); TOTAL BILIRUBIN ADULT 0.2 MG/DL (0.2-1.0); TOTAL PROTEIN 7.5 GM/DL (6.4-8.2)
[2017-10-03] MEDS ORDERED: oxyCODONE/ACETAMINOPHEN 5 MG/325 MG TAB PO ONE (02:30)
--- NOTE | 2017-10-03 03:12 | RADRPT ---
EXAM DATE/TIME: 10/03/2017 02:54 [facility] COMPARISON: HUMERUS RIGHT (MIN 2VWS), October 03, 2017, 0:08. INDICATIONS : Post splint application to right humerus. MEDICAL HISTORY : None. SURGICAL HISTORY : None. ENCOUNTER: Subsequent ACUITY: 1 day PAIN SCORE: 8/10 LOCATION: Right humerus FINDINGS: Two view examination of the right humerus demonstrates a mildly displaced spiral fracture of the prox imal humerus with slight improvement in alignment compared with the earlier exam. CONCLUSION: 1. Slight improvement in alignment of proximal right humeral fracture. Clinton Isabel MD on October 03, 2017 at 3:08 Board Certified Radiologist. This report was verified electronically.
[2017-10-03] MEDS ORDERED: ZOFR4TAB3 SL (03:16)
[2017-10-03] MEDS ORDERED: PERC5TAB12 PO (03:16)
--- NOTE | 2017-10-03 04:28 | PD ---
Physical Exam Time Seen by Provider: 04:27 Data Data Last Documented VS Vital Signs Date Time Temp Pulse Resp B/P (MAP) Pulse Ox O2 Delivery O2 Flow Rate FiO2 10/03/17 03:42 10/03/17 00:01 Room Air 10/02/17 23:36 98.6 73 16 100 Orders Orders Electrocardiogram (10/02/17 23:51) Complete Blood Count With Diff (10/02/17 23:51) Comprehensive Metabolic Panel (10/02/17 23:51) Prothrombin Time / Inr (Pt) (10/02/17 23:51) Act Partial Throm Time (Ptt) (10/02/17 23:51) Type And Screen (10/02/17 23:51) Chest, Single Ap (10/02/17 23:51) Pelvis, Ap Only (Routine) (10/02/17 23:51) Iv Access Insert/Monitor (10/02/17 23:51) Oximetry (10/02/17 23:51) Ecg Monitoring (10/02/17 23:51) Sodium Chloride 0.9% Flush (Ns Flush) (10/03/17 00:00) Humerus (Min 2vws) (10/02/17 ) Ct Brain W/O Iv Contrast(Rout) (10/02/17 ) Ct Facial Bones W/O Iv Cont (10/02/17 ) Ondansetron Inj (Zofran Inj) (10/03/17 01:00) Morphine Inj (Morphine Inj) (10/03/17 01:00) Splint Or Brace Apply/Monitor (10/03/17 01:34) Oxycodone-Acetamin 5-325 Mg (Percocet (10/03/17 02:30) Fiberglass Sugartong Sp Ad Arm (10/03/17 ) Sling And Swathe (10/03/17 ) Humerus (Min 2vws) (10/03/17 ) Ed Discharge Order (10/03/17 03:14) Labs Laboratory Tests Test 10/03/17 00:45 White Blood Count 11.6 TH/MM3 Red Blood Count 4.07 MIL/MM3 Hemoglobin 11.3 GM/DL Hematocrit 34.3 % Mean Corpuscular Volume 84.2 FL Mean Corpuscular Hemoglobin 27.7 PG Mean Corpuscular Hemoglobin Concent 32.9 % Red Cell Distribution Width 15.2 % Platelet Count 329 TH/MM3 Mean Platelet Volume 7.8 FL Neutrophils (%) (Auto) 82.6 % Lymphocytes (%) (Auto) 11.8 % Monocytes (%) (Auto) 4.3 % Eosinophils (%) (Auto) 0.7 % Basophils (%) (Auto) 0.6 % Neutrophils # (Auto) 9.6 TH/MM3 Lymphocytes # (Auto) 1.4 TH/MM3 Monocytes # (Auto) 0.5 TH/MM3 Eosinophils # (Auto) 0.1 TH/MM3 Basophils # (Auto) 0.1 TH/MM3 CBC Comment DIFF FINAL Differential Comment Prothrombin Time 10.4 SEC Prothromb Time International Ratio 1.0 RATIO Activated Partial Thromboplast Time 24.7 SEC Blood Urea Nitrogen 26 MG/DL Creatinine 0.90 MG/DL Random Glucose 119 MG/DL Total Protein 7.5 GM/DL Albumin 3.4 GM/DL Calcium Level 9.3 MG/DL Alkaline Phosphatase 116 U/L Aspartate Amino Transf (AST/SGOT) 25 U/L Alanine Aminotransferase (ALT/SGPT) 24 U/L Total Bilirubin 0.2 MG/DL Sodium Level 136 MEQ/L Potassium Level 3.9 MEQ/L Chloride Level 103 MEQ/L Carbon Dioxide Level 23.8 MEQ/L Anion Gap 9 MEQ/L Estimat Glomerular Filtration Rate 61 ML/MIN MDM Medical Record Reviewed: Yes Supervised Visit with NATALI: No Procedures Procedure Narrative LACERATION LOCATION: [Right eyelid LENGTH: 2 cm NUMBER OF STITCHES/LIZ: Dermabond and Steri-Strips REPAIR: The area of the laceration was prepped with Betadine and sterilely draped. The wound was copiously irrigated and explored without evidence of foreign body, tendon injury or neurovascular injury. The wound was closed using Dermabond and Steri-Strips. This was a single layer repair. A sterile dressing was applied. The patient was advised to keep the dressing clean and dry. Patient tolerated the procedure well. Diagnosis Primary Impression: Closed right humeral fracture Additional Impression: Minor closed head injury Referrals: Orthopaedic Surgeon call for appointment Call office in a.m. to schedule follow-up appointment with your orthopedist Dr. Hunter or front office clerk orthopedist Dr. Ruff on Saturday Patient Instructions: Narcotic given in the ED Departure Forms: Tests/Procedures Additional Instruction: Increase fluid hydration Take pain medication as prescribed as needed; be aware that narcotic medications may impair judgment, delay reaction time, increase risk for fall or cause constipation Takes Zofran as prescribed as needed needed for nausea and/or vomiting otherwise do not take this medication Use ice intermittently to areas of soft tissue swelling Follow head injury precautions 24 hours Follow up with your primary care provider call office in a.m. to schedule follow -up appointment Return to the emergency department for any concerns or change in condition Scripts Ondansetron Odt (Zofran Odt) 4 Mg Tab 4 MG SL Q6HR Y for Nausea/Vomiting, #10 TAB 0 Refills Prov: Tish Theodore MD 10/03/17 Oxycodone-Acetaminophen (Percocet) 5-325 mg Tab 1 TAB PO Q6H Y for PAIN, #12 TAB 0 Refills Prov: Tish Theodore MD 10/03/17 Disposition: 01 DISCHARGE HOME Condition: Stable Diann Hernandez Oct 03, 2017 04:28
== END 2017-10-03 03:42 | disposition home or self-care (01) ==
LOC: NEPC 23:18
DX: S42.291A Other displaced fracture of upper end of right humerus, initial encounter for closed fracture (principal); S01.111A Laceration without foreign body of right eyelid and periocular area, initial encounter; E78.00 Pure hypercholesterolemia, unspecified; I10 Essential (primary) hypertension; F32.9 Major depressive disorder, single episode, unspecified; W01.0XXA Fall on same level from slipping, tripping and stumbling without subsequent striking against object, initial encounter; Y92.009 Unspecified place in unspecified non-institutional (private) residence as the place of occurrence of the external cause; Z79.02 Long term (current) use of antithrombotics/antiplatelets
CPT/HCPCS: 12011; 29125; 29240; 70450; 70486; 71045; 72170; 73060; 80053; 85025; 85610; 85730; 86850; 86900; 86901; 96374; 96375; 99285; J2270; J2405

== ENCOUNTER 2018-01-17 06:25 | Day surgery (SDC) | payer MEDICARE ==
[~2018-01-17] VITALS: Ht 154.9 cm; Wt 63.4 kg
[~2018-01-17 06:25] MED LIST changes: +PERC5TAB12 PO; +ZOFR4TAB3 SL
[2018-01-17] MEDS ORDERED: IOHEXOL 350 MG/ML 100 ML BTL (for Cath Lab) OTHER ONE (06:26)
[2018-01-17] MEDS ORDERED: IOHEXOL 350 MG/ML 50 ML BTL (for Cath Lab) OTHER ONE (06:26)
[2018-01-17 07:17] VITALS: BP 162/74; PULSE 77; RESP 18; TEMP 98.1; O2SAT 100
[2018-01-17] MEDS ORDERED: LOPE-1 PO (07:29)
[2018-01-17] MEDS ORDERED: HEPARIN-NS/PF INJ 500 ML ONE ×2 (08:33→08:54)
[2018-01-17] MEDS ORDERED: MIDAZOLAM HCL 2 MG/2 ML VIAL ONE ×2 (08:35→09:08)
[2018-01-17] MEDS ORDERED: HEPARIN SODIUM - IV 10,000 UNITS/10 ML VIAL ONE (08:35)
[2018-01-17] MEDS ORDERED: NITROGLYCERIN INJ 5 ML ONE (08:35)
[2018-01-17] MEDS ORDERED: SODIUM CHLOR 0.9% 1000 ML INJ 1,000 ML IV SCH (09:38)
[2018-01-17] MEDS ORDERED: ACETAMINOPHEN 325 MG TAB PO PRN (09:45)
[2018-01-17] MEDS ORDERED: BACITRACIN OINT 0.9 GM PKT TOP ONE (09:45)
[2018-01-17] MEDS ORDERED: oxyCODONE/ACETAMINOPHEN 5 MG/325 MG TAB PO PRN (09:45)
[2018-01-17] MEDS ORDERED: ATROPINE SULFATE 1 MG/ML VIAL IV PUSH PRN (09:45)
[2018-01-17] MEDS ORDERED: oxyCODONE/ACETAMINOPHEN 10 MG/325 MG TAB PO PRN (09:45)
[2018-01-17] MEDS ORDERED: MISC INFORMATION XX ONE (09:45)
[2018-01-17] MEDS ORDERED: SODIUM CHLOR 0.9% 250 ML INJ 250 ML IV PRN (09:45)
[2018-01-17] MEDS ORDERED: LIDOCAINE HCL 1% 50 ML VIAL INFIL PRN (09:45)
[2018-01-17] MEDS ORDERED: LORazepam 2 MG/ML VIAL IV PUSH PRN (09:45)
--- NOTE | 2018-01-17 09:50 | CATHPROC ---
[facility] HIS Report Study Information Study Number Admission Scheduled Start Study Start [id number] Jan 17 2018 6:25AM 01/17/2018 Jan 17 2018 8:27AM Terry Service Cath Endovascular Study Admit Source Facility Department Other [facility] - Fiscal Specialist Physician and Clinical Staff Initial Ilir Amezquita Assistant Track And Field Coach Mandie Dickerson,RN Recorder Lew Noe,DALIA Scrub Meredith Ashby,RT(R) (BS) Procedures Performed Procedure Location (Site) Vessel Name PTCA SFA (right) Femoral Art Wire insertion Fem Art (right) Femoral Art Equipment Time Disease Management Nurse Description Size Mfg Part Number Used/Scraped DBP- CARDIOVASCULAR CATHETER, STEALTH SOLID 09:04 [id number] Used [employer] 2.0MM *[id number] CARDIOVASCULAR VPR-[id number] 09:04 WIRE, FIRM (VIPER) 335 Used SYSTEMS INC. *[id number] 532-523 08:34 CORDIS/ NORA RIM SUPER TORQUE CATHETER FR 5 Used *[id number] *[id number] ENDOVASCULAR BALLOON, NANOCROSS 3.0 X [id number] 09:29 3 X 210 Used COMPANY 210MM 150CM *[id number] ENDOVASCULAR BALLOON, NANOCROSS 4.0 X [id number] 09:15 4.0 X 40 Used COMPANY 40MM 150CM *[id number] BALLOON, ADMIRAL IN.PACT 5 X [id number] 09:19 [employer] 130CM Used 80 130CM *[id number] CATHETER, FR5 TRAILBLAZER [id number] 09:02 [employer] 135CM Used .035 *[id number] 08:34 MALLINCKRODT SYRINGE, ANGIOMAT 150ML 150ML [id number] Used [id number] 08:34 [employer]ES PACK, CCL CUSTOM * Used *[id number] 08:34 [employer] PACER PEN, SKIN DUAL W/ RULER * Used *[id number] 09:21 [employer] 30 NORMA INDEFLATOR Used *[id number] 09:35 [employer] SHEATH, FR6.5 PRELUDE 11CM FR 6.5 038ACT Used *[id number] [id number] 08:34 [employer] WIRE, EXCHANGE 260CM 3MMJ 260CM Used *[id number] 08:34 NAMIC MANIFOLD, 4 PORT * Used *[id number] 08:34 NAMIC TUBING, HIGH PRESSURE 48" 48" Used *[id number] 08:34 [employer] OMNIPAQUE, 300 MG, 150ML 150ML [id number] Used [id number] 08:34 JURADO MEDICAL BLANKET,WARM AIR CCL * Used *[id number] 08:34 TERUMO MEDICAL SHEATH, FR5 TERUMO (10CM) FR 5 Used *[id number] SHEATH, FR6 PINNACLE [id number] 09:01 TERUM[employer] MEDICAL/NORA FR 6 Used DESTINATION 45CM *[id number] SHEATH, FR6 PINNACLE [id number] 09:03 [employer] MEDICAL/NORA FR 6 Used DESTINATION 45CM *[id number] WIRE, ANGLE GLIDE STIFF .035 [id number] 08:34 TERUM[employer] MEDICAL/NORA 260CM Used 260CM *[id number] Equipment Model, Serial, Lot Number and Expiration Data Description Model Number Serial Number Lot Number Expiration Date BALLOON, ADMIRAL IN.PACT 5 X [id number] 09-25-2020 80 130CM CATHETER, STEALTH SOLID 2.0MM [id number] 10-31-2019 WIRE, FIRM (VIPER) 335 [id number] 09-01-2019 History: Current Medications Medication Dosage/Unit Route Frequency Last Date/Time Taken ASA Statins (any) PLAVIX History: Allergies Allergy Reaction Sulfa (Sulfonamide Antibiotics) Rash ciprofloxacin PT DOES NOT REMEMBER History: Risk Factors Family History of Hypertension Dyslipidemia Previous ND Previous Heart Failure Premature CAD No Yes Yes No No Prior Valve Prior PCI Prior CABG Surgery No No No Cerebrovascular Peripheral Artery Chronic Lung On Dialysis Diabetes Disease Disease Disease No No Yes No No History: Stress Tests Stress or Imaging Studies Performed No History: Other Current Smoker No Labs Hgb (g/dl) Hct (%) WBC (l/cumm) Platelets (thousands) 11.60-17.00 35.00-51.00 4.00-11.00 150.00-450.00 12.4 39.2 9 322 Glucose (mg/dl) BUN (mg/dl) Creatinine (mg/dl) BUN:Creatinine (1:x) 74.00-106.00 7.00-18.00 0.50-1.30 10.00-20.00 94 26 0.8 32.5 Na (meq/l) K (meq/l) 136.00-145.00 3.50-5.10 143 4.2 INR (PTT:PT) 0.90-1.10 0.9 CPK-MB (ng/ML) 0.50-3.60 Not Drawn Medication Medication Total Dose (Bolus/Oral) Medication Total Dosage/Unit 1% XYLOCAINE 20 mL FENTANYL 50 mcg HEPARIN 6000 units VERSED 2 mg Medications (Bolus/Oral) Medication Time Given Dosage/Unit Administered By Reason VERSED 01/17/2018 8:50:52 AM 2 mg Mandie Dickerson 2 mg VERSED given in lab by Mandie Dickerson, DALIA via Peripheral IV. FENTANYL 01/17/2018 8:51:04 AM 50 mcg Mandie Dickerson 50 mcg FENTANYL given in lab by Mandie Dickerson, DALIA via Peripheral IV. 1% XYLOCAINE 01/17/2018 8:58:52 AM 20 mL Ilir Ludwig 20 mL 1% XYLOCAINE given in lab by Ilir Ludwig in Left Groin via Subcutaneous. HEPARIN 01/17/2018 9:03:00 AM 6000 units Ilir Ludwig 6000 units HEPARIN given in lab by Ilir Ludwig via Peripheral IV. Medication (Drip) Medication Time Given Dosage/Unit Concentration/Unit Diluent (ml) Solution IV Solutions 01/17/2018 8:27:11 AM 50 mL (IV) NaCl .9 IV Solutions given in lab by Mandie Dickerson, DALIA in Left Antecubital via Peripheral IV. Pump/Drip Carlos w using NaCl .9. Initial Case Assessment Cardiovascular HR Rhythm NIBP Chest Pain 71 SR 179/74 0 Circulatory - Right Pulses Dorsalis Pedis Femoral 2 2 Scale (0,1,2,3,4,d) Circulatory - Left Pulses Dorsalis Pedis Femoral 2 2 Scale (0,1,2,3,4,d) Neurological State Oriented to time-place- Alert Moves all extremities person Respiration - General Respiration Rate SpO2 (%) (B/min) 12 100 Final Case Assessment Cardiovascular Edema Present Skin color Skin None Normal Warm Dry Circulatory - Right Pulses Dorsalis Pedis Posterior Tibial Femoral 1 1 2 Scale (0,1,2,3,4,d) Circulatory - Left Pulses Dorsalis Pedis Posterior Tibial Femoral 1 1 2 Scale (0,1,2,3,4,d) Circulatory - Lower Extremities Color Lower Right Color Lower Left Normal Normal Neurological State Oriented to time-place- Alert Moves all extremities person Respiration - General SpO2 (%) 100 Chronological Log Time Study Chronological Log 8:26:59 Patient arrived via Bed. 8:27:00 Patient Name, D.O.B, / Armband Verified By R.N. 8:27:00 Consent signed by the physician and the patient and verified by the Fiscal Specialist staff. 8:27:01 Pre-op and post- op instructions given; patient acknowledges understanding of instructions. 8:27:02 Verbal Stimulation=2 Physical Stimulation=2 Airway=2 Respiration=2 TOTAL=8. (0=absent, 1=li mited, 2=present) 8:27:03 Presedation assessment performed by Fiscal Specialist RN. 8:27:05 Patient has been NPO for More than 6Hrs. 8:27:06 Skin Breakdown- none per pt 8:27:07 Patient Warmer Placed on the Table. 8:27:08 Aurelio Prominences Protected 8:27:10 A # 20 IV was noted in the Antecubital (left). Grade = 0 8:27:11 IV Solutions given in lab by Mandie Dickerson, RN in Left Antecubital via Peripheral IV. Pum p/Drip Flow using NaCl .9. 8:27:12 History and physical on the chart or being dictated. Assessment: Initial Case, HR=71 BPM, Rhythm=SR, PCXL=794/74 mmhg, Chest Pain=0 Right Pulses: Tariq Ped=2, Femoral=2 8:27:12 Left Pulses: Tariq Ped=2, Femoral=2 Neurological: State=Alert, Ox3, SWAN Respiration: Resp=12 B/min, JwG0=401 % 8:31:01 Reference ECG taken Vitals capture started with the following parameters, Patient=Adult, Interval=5 min, Initial Pre gudbm=498 mmHg, 8:32:20 Deflation Rate=5 mmHg, Cuff placed on Right Ankle 8:33:44 HR=72 bpm, PZMI=214/78 mmhg, ThY9=149.0 %, Resp=12 B/min 8:38:10 HR=74 bpm, SOJZ=601/73 mmhg, JsS5=199.0 %, Resp=17 B/min 8:39:58 Bilateral groins prepped with 2% chlorhexidine, and draped after a 3 minute waiting time. 8:41:06 MD paged 8:41:16 MD responded 8:43:11 HR=71 bpm, LJFA=878/74 mmhg, BaR0=186.0 %, Resp=15 B/min 8:43:40 Pressure channel 1 zeroed. 8:48:12 HR=66 bpm, MDCK=616/70 mmhg, AvM4=772.0 %, Resp=16 B/min, Pain=0, Joann=10, Hand=2 8:50:42 MD arrived. 8:50:52 2 mg VERSED given in lab by Mandie Dickerson, RN via Peripheral IV. 8:51:04 50 mcg FENTANYL given in lab by Mandie Dickerson, RN via Peripheral IV. 8:53:11 HR=74 bpm, QLLQ=985/57 mmhg, SpO2=96 %, Resp=9 B/min, Pain=0, Joann=10, Hand=2 Time Out. Correct patient, correct procedure, correct physician, labs, allergies, and equipment verified with equipment operator/laborer/supervisor 8:55:34 team present. Fire risk assesment completed (see hard stop sheet for coding). Time Out Concu rred by MD and individual staff in procedure. 8:55:39 Case Start 8:58:06 HR=67 bpm, PCBJ=145/60 mmhg, AxI8=753.0 %, Resp=12 B/min, Pain=0, Joann=10, Hand=2 8:58:52 20 mL 1% XYLOCAINE given in lab by Ilir Ludwig in Left Groin via Subcutaneous. 8:59:00 A SHEATH, FR5 TERUMO (10CM) FR 5 was advanced into the Fem Art (left) using the Modified Jeanette marlyn technique. A RIM SUPER TORQUE CATHETER FR 5 was advanced over a wire. OMNIPAQUE, 300 MG, 150ML 150ML was us ed for 9:00:21 injections. 9:00:42 Through a RIM SUPER TORQUE CATHETER FR 5, The Femoral Run-off was injected with ~CC/SEC~ cc' s per second. 9:03:00 6000 units HEPARIN given in lab by Ilir Ludwig via Peripheral IV. 9:03:09 HR=72 bpm, EMZN=507/53 mmhg, HmZ6=914.0 %, Resp=18 B/min, Pain=0, Joann=10, Hand=2 9:03:29 Catheter was removed A SHEATH, FR6 PINNACLE DESTINATION 45CM FR 6 was exchanged in the Fem Art (right). This was nece ssary in 9:03:50 order to accomodate a larger catheter. A CATHETER, FR5 TRAILBLAZER .035 135CM was advanced over a wire. OMNIPAQUE, 300 MG, 150ML 150ML was 9:03:59 used for injections. 9:04:25 A WIRE, FIRM (VIPER) 335 was inserted via Fem Art (right). 9:05:30 An CATHETER, STEALTH SOLID 2.0MM catheter was inserted into the SFA (right). 9:08:06 HR=79 bpm, FDQV=481/55 mmhg, XxC9=865.0 %, Resp=15 B/min, Pain=0, Joann=10, Hand=2 9:12:41 atherectomizing 9:13:07 HR=73 bpm, CWIY=457/46 mmhg, SpO2=99.0 %, Resp=16 B/min, Pain=0, Joann=10, Hand=2 9:15:53 Catheter was removed A BALLOON, NANOCROSS 4.0 X 40MM 150CM 4.0 X 40 was inserted over WIRE, ANGLE GLIDE STIFF .035 26 0CM 9:17:20 260CM via the SFA (right). 9:17:43 ACT (Normal Range 90-180) = 383 9:18:04 HR=74 bpm, MYGU=648/43 mmhg, SpO2=99.0 %, Resp=14 B/min, Pain=0, Joann=10, Hand=2 9:19:23 Balloon Removed. A BALLOON, ADMIRAL IN.PACT 5 X 80 130CM 130CM was inserted over WIRE, ANGLE GLIDE STIFF .035 260 CM 9:19:31 260CM via the SFA (right). A BALLOON, ADMIRAL IN.PACT 5 X 80 130CM 130CM over a WIRE, ANGLE GLIDE STIFF .035 260CM 260CM in the 9:20:35 SFA (right) was inflated using a 30 NORMA INDEFLATOR at 6 norma for 180 sec. 9:23:03 HR=75 bpm, JVTW=660/51 mmhg, SpO2=99.0 %, Resp=16 B/min, Pain=0, Joann=10, Hand=2 A BALLOON, ADMIRAL IN.PACT 5 X 80 130CM 130CM over a WIRE, ANGLE GLIDE STIFF .035 260CM 260CM in the 9:23:48 SFA (right) was inflated using a 30 NORMA INDEFLATOR at 6 norma for 180 sec. 9:27:05 Balloon Removed. 9:28:06 HR=76 bpm, MRTN=261/57 mmhg, TkD5=480.0 %, Resp=22 B/min, Pain=0, Joann=10, Hand=2 A BALLOON, NANOCROSS 3.0 X 210MM 150CM 3 X 210 was inserted over WIRE, ANGLE GLIDE STIFF .035 260CM 9:28:47 260CM via the Tib, Post (right). A BALLOON, NANOCROSS 3.0 X 210MM 150CM 3 X 210 over a WIRE, ANGLE GLIDE STIFF .035 260CM 260CM in the 9:32:41 SFA (right) was inflated using a 30 NORMA INDEFLATOR at 6 norma for 180 sec. 9:32:56 Balloon Removed. 9:33:05 HR=78 bpm, HJRJ=006/61 mmhg, BoB1=037.0 %, Resp=16 B/min, Pain=0, Joann=10, Hand=2 A SHEATH, FR6.5 PRELUDE 11CM FR 6.5 was exchanged in the Fem Art (left). This was necessary in order to minimize 9:34:10 site leakage. 9:35:03 Case End 9:35:13 Sheath(s) left in place, will be removed in Holding Area 9:35:19 Sterile dressing applied to site 9:35:21 No case complications noted. 9:38:10 HR=71 bpm, CIVH=011/59 mmhg, BmK2=330.0 %, Resp=13 B/min, Pain=0, Joann=10, Hand=2 9:43:07 HR=71 bpm, JKYW=314/60 mmhg, PmS3=703.0 %, Resp=16 B/min, Pain=0, Joann=10, Hand=2 9:49:17 DOCU called. Spoke to Moises Assessment: Final Case, Edema=None, Color=Normal, Skin = Warm, Dry Right Pulses: Tariq Ped=1, Post Tib=1, Femoral=2 Left Pulses: Tariq Ped=1, Post Tib=1, Femoral=2 9:49:27 Lower Right Extremities: Color=Normal Lower Left Extremities: Color=Normal Neurological: State=Alert, Ox3, SWAN Respiration: PjI9=895 % 9:49:59 Bedside Report will be given. 9:50:00 Patient moved to stretcher End Study - Contrast Media Used In Study Contrast Total Opened (mL) Total Used (mL) Total Wasted (mL) Omnipaque 150 135 15 End Study - Maximum Contrast Load Max Contrast Load (mL) 396.3 End Study - Radiation Exposure Fluoro Time (minutes) 5.2 End Study - Patient Disposition Complications Transferred To Interventional Outcome No Fiscal Specialist Holding successful
--- NOTE | 2018-01-17 10:34 | MA ---
cc: Ilir Ludwig MD DATE: 01/17/2018 PROCEDURES PERFORMED: 1. Fluoroscopy with interpretation. 2. Right lower extremity peripheral angiography with first, second, third order visualization interpretation. 3. Orbital rotational atherectomy and balloon angioplasty with drug-coated stent of the right superficial femoral artery. 4. Percutaneous transluminal angioplasty of the right posterior tibial artery. METHOD: The risks, benefits and alternatives discussed with the patient, patient understood and consented to the procedure. PROCEDURE: The patient brought into the catheterization lab, placed on the catheterization table. The left groin were prepped and draped in a sterile fashion. The left groin was anesthetized with 2% lidocaine. The left common femoral artery was cannulated. A 5-Turkish, 11 cm sheath was placed without difficulty. RIGHT LOWER EXTREMITY PERIPHERAL ANGIOGRAPHY: Right common internal and external iliac arteries have minor luminal irregularities. Right common femoral and profunda arteries widely patent. Right superficial femoral has some moderate disease in the proximal segment, but has a discrete 90% stenosis in the mid segment. Popliteal artery is widely patent. Posterior tibial and peroneal arteries are subtotally occluded. Anterior tibial has mild luminal irregularities. PERCUTANEOUS INTERVENTION: A 6-Turkish, 45 cm Umeng [place] sheath was advanced up and over the arch. A 0.035 inch, 260 cm stiff angled Glidewire was navigated down the anterior tibial artery. A TrailBlazer catheter advanced behind it. The wire removed. A ViperWire was then advanced down to the distal anterior tibial artery and TrailBlazer catheter removed. A 2.0 mm CSI atherectomy catheter was then prepped. Orbital rotational atherectomy was performed at 60,000 and 90,000 revolutions per minute in the right superficial femoral artery. The device removed and a 4.0 x 40 mm Medtronic balloon was then deployed in the mid segment, followed by a 5.0 x 80 mm Medtronic drug-coated balloon deployed in the mid segment. Nitroglycerin was administered. Repeat angiography showed no residual stenosis. The wire was then directed down the posterior tibial artery which was subtotally occluded with some time and difficulty. A 2.5 x tapered 3.52, 220 mm Medtronic balloon was then advanced down to the distal posterior tibial artery and deployed on 2 sequential inflations and repeat angiography showed no residual stenosis, and FATOUMATA 3 flow. Sheath was then removed and a 6-Turkish short sheath was placed without difficulty. CONCLUSIONS: 1. 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 2. Successful rotational atherectomy and balloon angioplasty with a drug-coated balloon in the right superficial femoral artery and plain balloon angioplasty of right posterior tibial artery. PLAN: Monitor the patient closely for any post-procedural complication. Hopefully, this will translate well to symptomatic improvement. We will medically manage the rest of her disease. MD CLEMENTINA Hill/DL , 09:43 AM , 10:33 AM
[2018-01-17] MEDS ORDERED: TEMAZEPAM 15 MG CAP PO PRN (21:00)
== END 2018-01-17 20:03 | disposition home or self-care (01) ==
LOC: HDOC 06:25 → HDIC 06:26 → HDOC 20:03
PROVIDERS: ATTEND Internal Medicine
DX: I70.211 Atherosclerosis of native arteries of extremities with intermittent claudication, right leg (principal); I70.0 Atherosclerosis of aorta; E78.2 Mixed hyperlipidemia; Z79.82 Long term (current) use of aspirin
CPT/HCPCS: 37225; 37228; 75710; 85002; 85347; 86850; 86900; 86901; 99152; 99153; C1725; C1751; C1769; C1893; C2623; J1644; J2250; J3010; Q9967

== ENCOUNTER 2018-01-23 21:08 | Emergency (ER) | payer MEDICARE ==
[~2018-01-23] VITALS: Ht 152.4 cm; Wt 60.0 kg
[~2018-01-23 21:08] MED LIST changes: +LOPE-1 PO; -PERC5TAB12 PO; -ZOFR4TAB3 SL
[2018-01-23 21:20] VITALS: BP 163/67; PULSE 97; RESP 16; TEMP 98.6; O2SAT 97
[2018-01-24 01:26] VITALS: BP 188/76; PULSE 78; RESP 18; O2SAT 99
[2018-01-24 02:36] LABS: BASOPHIL # 0.1 TH/MM3 (0-0.2); BASOPHIL % 0.6 % (0.0-2.0); EOSINOPHIL # 0.1 TH/MM3 (0-0.4); EOSINOPHIL % 1.4 % (0.0-4.0); HEMOGLOBIN 11.6 GM/DL (11.6-15.3); LYMPH % 28.8 % (9.0-44.0); LYMPHOCYTE # 2.7 TH/MM3 (1.0-4.8); MEAN CELL VOLUME 83.9 FL (80.0-100.0); MEAN CORPUSCULAR HEMOGLOBIN 27.8 PG (27.0-34.0); MEAN CORPUSCULAR HGB CONC 33.2 % (32.0-36.0); MEAN PLATELET VOLUME 8.2 FL (7.0-11.0); MONO % 6.6 % (0.0-8.0); MONOCYTE # 0.6 TH/MM3 (0-0.9); NEUT % 62.6 % (16.0-70.0); PLATELET COUNT 358 TH/MM3 (150-450); RED BLOOD COUNT 4.17 MIL/MM3 (4.00-5.30); RED CELL DISTRIBUTION WIDTH 14.4 % (11.6-17.2); WHITE BLOOD COUNT 9.5 TH/MM3 (4.0-11.0)
[2018-01-24 02:49] LABS: BICARBONATE 26.3 MEQ/L (21.0-32.0); CALCIUM 9.5 MG/DL (8.5-10.1); CREATININE 0.81 MG/DL (0.50-1.00)
[2018-01-24 02:52] LABS: PROTHROMBIN TIME - PATIENT 9.7 SEC (9.8-11.6)
--- NOTE | 2018-01-24 03:09 | RADRPT ---
EXAM DATE: 01/24/2018 2:47 AM EDT AGE/SEX: 78 years / Female INDICATIONS: Left groin bruising with lump. CLINICAL DATA: This is the patient's initial encounter. Patient reports that signs and symptoms have been present for 1 week and indicates a pain score of 0/10. MEDICAL/SURGICAL HISTORY: . Hyperlipidemia. Peripheral vascular disease. . Right lower extr emity peripheral angiography. Heart catheterization. Bilateral hip replacement. section. Appendectomy. COMPARISON: No prior [facility] exams available for comparison. No external comparison. TECHNIQUE: Ojeda-scale and color Doppler imaging of the inguinal region was performed. FINDINGS: Vascular: The arteries and veins in the inguinal region demonstrate no acute abnormality. There is no aneurysm, pseudoaneurysm, or thrombosis. Other: No hematoma is present. The visualized surrounding structures demonstrate no abnormality. CONCLUSION: No pseudoaneurysm is seen. Electronically signed by: Isaiah Payne MD 01/24/2018 3:08 AM EDT
--- NOTE | 2018-01-24 03:21 | PD ---
HPI Chief Complaint: Medical Clearance Time Seen by Provider: 01:50 Travel History International Travel<30 days: No Contact w/Intl Traveler<30days: No Traveled to known affect area: No History of Present Illness HPI 78-year-old female with significant bilateral lower extremity peripheral artery disease underwent elective right lower extremity angiography atherectomy balloon angioplasty and stent placement of the right superficial femoral artery and percutaneous angioplasty of the right posterior tibial artery 01/17/[address]. Ludwig. Patient has had bruising to the left groin post procedure. Patient stated this evening she seemed to think that the bruising was more noticeable and decided to come to the emergency room. Patient did not contact her physician. Patient has no lower extremity numbness tingling or weakness. Patient has no lower extremity pain or pallor. Patient states she was just concerned about the bruise. Patient states that direct pressure had to be held postprocedure and that she takes Plavix daily. Patient denies other concerns or complaints. Patient denies any known exacerbating or alleviating factors. The patient rates her pain 0/10 intensity. Patient denies any other areas of bleeding no report of gum bleeding epistaxis hemoptysis hematemesis coffee-ground emesis melena hematochezia or hematuria PFSH Past Medical History Narrative Medical Plavix aspirin CAD dyslipidemia PAD depression appendectomy no tobacco use; nursing notes reviewed Hx Anticoagulant Therapy: Yes (PLAVIX, ASA ) Arthritis: Yes Asthma: No Autoimmune Disease: No Blood Disorders: No Depression: Yes Heart Rhythm Problems: Yes Cancer: No Cardiac Catheterization: Yes (X2 ) Cardiovascular Problems: Yes High Cholesterol: Yes Chest Pain: No Congestive Heart Failure: No COPD: No Cerebrovascular Accident: No Diabetes: No Diminished Hearing: No Endocrine: No Gastrointestinal Disorders: No GERD: No Glaucoma: No Genitourinary: No Headaches: No Hepatitis: No Hiatal Hernia: No Hypertension: No Kidney Stones: No Musculoskeletal: Yes Neurologic: No Psychiatric: Yes Reproductive: No Respiratory: Yes Myocardial Infarction: No Renal Failure: No Seizures: No Sleep Apnea: No Thyroid Disease: No Triglycerides - High: Yes Ulcer: No Menopausal: Yes : 3 Para: 3 Past Surgical History Abdominal Surgery: Yes AICD: No Appendectomy: Yes Cardiac Surgery: No Section: Yes (x3) Ear Surgery: No Endocrine Surgery: No Eye Surgery: No Genitourinary Surgery: Yes Gynecologic Surgery: Yes (C SECTIONS) Insulin Pump: No Neurologic Surgery: No Oral Surgery: No Pacemaker: No Thoracic Surgery: No Other Surgery: Yes Social History Alcohol Use: No Tobacco Use: No Substance Use: No Allergies-Medications (Allergen,Severity, Reaction): Coded Allergies: Sulfa (Sulfonamide Antibiotics) (Unverified Allergy, Severe, Rash, 01/23/18 ) ciprofloxacin (Unverified Allergy, Unknown, PT DOES NOT REMEMBER, 01/23/18) Reported Meds & Prescriptions Reported Meds & Active Scripts Active Plavix (Clopidogrel Bisulfate) 75 Mg Tab 75 Mg PO DAILY Reported Imodium A-D (Loperamide HCl) 2 Mg Capsule 2 Mg PO DIRECTED PRN One capsule after each loose stool. Not to exceed 8 tablets per day. Benadryl Allergy (Diphenhydramine HCl) 25 Mg Tablet 25 Mg PO HS Multiple Vitamin 1 Tab 1 Tab PO DAILY Lovastatin 20 Mg Tab 20 Mg PO DAILY Lexapro (Escitalopram Oxalate) 5 Mg Tab 5 Mg PO DAILY Claritin (Loratadine) 10 Mg Cap 10 Mg PO DAILY Calcium + D3 (Calcium Carbonate-Cholecalciferol) 600-200 Mg-Unit Tab 1,200 Mg PO BID Biotin 5 Mg Cap [address] (Aspirin) 81 Mg Tabdr 81 Mg PO DAILY Review of Systems Except as stated in HPI: all other systems reviewed are Neg General / Constitutional: No: Fever, Chills HENT: No: Congestion Cardiovascular: No: Chest Pain or Discomfort Respiratory: No: Shortness of Breath Gastrointestinal: No: Abdominal Pain Genitourinary: No: Flank Pain Musculoskeletal: No: Limited ROM, Pain Skin: Positive Other, No Rash Neurologic: No: Weakness (Ecchymosis left groin), Dizziness, Syncope Psychiatric: No: Anxiety Hematologic/Lymphatic: Positive: Easy Bruising (Plavix and aspirin) Physical Exam Narrative GENERAL: Well-developed well-nourished female no acute distress no respiratory distress SKIN: Warm and dry. HEAD: Normocephalic. EYES: No scleral icterus. No injection or drainage. NECK: Supple, trachea midline. No JVD or lymphadenopathy. CARDIOVASCULAR: Regular rate and rhythm without murmurs, gallops, or rubs. RESPIRATORY: Breath sounds equal bilaterally. No accessory muscle use. GASTROINTESTINAL: Abdomen soft, non-tender, nondistended. MUSCULOSKELETAL: No cyanosis, or edema. Attention left groin area of ecchymosis to the left groin with palpable 2+ femoral artery to palpation distally extremities neurovascular tendon intact with palpable dorsalis pedis pulse 1+ to palpation brisk capillary refill sensory motor exam intact; right lower extremity exam is normal with 2+ femoral artery and dorsalis pedis pulse. BACK: Nontender without obvious deformity. No CVA tenderness. Data Data Last Documented VS Vital Signs Date Time Temp Pulse Resp B/P (MAP) Pulse Ox O2 Delivery O2 Flow Rate FiO2 01/24/18 01:26 78 18 188/76 (113) 99 Room Air 01/23/18 21:20 98.6 Orders Orders Complete Blood Count With Diff (01/24/18 01:51) Act Partial Throm Time (Ptt) (01/24/18 01:51) Prothrombin Time / Inr (Pt) (01/24/18 01:51) Basic Metabolic Panel (Bmp) (01/24/18 01:51) Us Leg Hematoma/Pseudoaneurysm (01/24/18 ) Labs Laboratory Tests Test 01/24/18 02:15 White Blood Count 9.5 TH/MM3 Red Blood Count 4.17 MIL/MM3 Hemoglobin 11.6 GM/DL Hematocrit 35.0 % Mean Corpuscular Volume 83.9 FL Mean Corpuscular Hemoglobin 27.8 PG Mean Corpuscular Hemoglobin Concent 33.2 % Red Cell Distribution Width 14.4 % Platelet Count 358 TH/MM3 Mean Platelet Volume 8.2 FL Neutrophils (%) (Auto) 62.6 % Lymphocytes (%) (Auto) 28.8 % Monocytes (%) (Auto) 6.6 % Eosinophils (%) (Auto) 1.4 % Basophils (%) (Auto) 0.6 % Neutrophils # (Auto) 6.0 TH/MM3 Lymphocytes # (Auto) 2.7 TH/MM3 Monocytes # (Auto) 0.6 TH/MM3 Eosinophils # (Auto) 0.1 TH/MM3 Basophils # (Auto) 0.1 TH/MM3 CBC Comment DIFF FINAL Differential Comment Prothrombin Time 9.7 SEC Prothromb Time International Ratio 1.0 RATIO Activated Partial Thromboplast Time 25.6 SEC Blood Urea Nitrogen 32 MG/DL Creatinine 0.81 MG/DL Random Glucose 99 MG/DL Calcium Level 9.5 MG/DL Sodium Level 141 MEQ/L Potassium Level 4.2 MEQ/L Chloride Level 104 MEQ/L Carbon Dioxide Level 26.3 MEQ/L Anion Gap 11 MEQ/L Estimat Glomerular Filtration Rate 69 ML/MIN MDM Medical Decision Making Medical Screen Exam Complete: Yes Emergency Medical Condition: Yes Medical Record Reviewed: Yes Interpretation(s) Last Impressions Lower Extremity Ultrasound 01/24/18 0000 Signed Impressions: CONCLUSION: No pseudoaneurysm is seen. CBC & BMP Diagram 01/24/18 02:15 Calcium Level 9.5 Vital Signs Date Time Temp Pulse Resp B/P (MAP) Pulse Ox O2 Delivery O2 Flow Rate FiO2 01/24/18 01:26 78 18 188/76 (113) 99 Room Air 01/23/18 21:20 98.6 97 16 163/67 (99) 97 Differential Diagnosis Hematoma, pseudoaneurysm, postprocedural bleed, vascular reocclusion Narrative Course CBC and metabolic panel coagulation studies collected for resulting and ultrasound of the left groin ordered Lab values grossly normal range Ultrasound shows no evidence for pseudoaneurysm Patient is stable for outpatient management Diagnosis Primary Impression: Postoperative ecchymosis Referrals: Primary Care Physician call for appointment Patient Instructions: General Instructions Additional Instructions: Follow-up with your surgeon call office in a.m. to schedule follow-up appointment Return the emergency department for any concerns or change in condition May take acetaminophen/Tylenol as needed for discomfort or fever 100.4F or greater Tish Theodore MD January 24, 2018 03:21
== END 2018-01-24 03:57 | disposition home or self-care (01) ==
LOC: NEPC 21:08
DX: I97.638 Postprocedural hematoma of a circulatory system organ or structure following other circulatory system procedure (principal); I25.10 Atherosclerotic heart disease of native coronary artery without angina pectoris; E78.00 Pure hypercholesterolemia, unspecified; F32.9 Major depressive disorder, single episode, unspecified; E78.1 Pure hyperglyceridemia; Z79.02 Long term (current) use of antithrombotics/antiplatelets; Z79.82 Long term (current) use of aspirin; Z79.899 Other long term (current) drug therapy; Z88.2 Allergy status to sulfonamides
CPT/HCPCS: 80048; 85025; 85610; 85730; 93926